=== PATIENT | female | born 2000 | race Two or more races ===

== ENCOUNTER 2024-03-24 20:44 | Emergency (ER) | payer BC, MEDICAID, SELFPAY ==
[2024-03-24 20:44] VITALS: BMI 22.6
[2024-03-24 21:02] VITALS: BP 119/82; PULSE 95; RESP 16; TEMP 36.8; O2SAT 98
--- NOTE | 2024-03-24 21:07 | PD.EDRME ---
Rapid Medical Screening Exam RME Arrival date/time: 03/24/24 20:44 23 year old female present to ED for c/o of vaginal spotting today 8 week I have greeted and performed a focused initial assessment of this patient. A comprehensive ED assessment and evaluation of the patient, analysis of all test results, and completion of the medical decision making process will be conducted by additional ED providers. Chief Complaint: Vaginal Bleeding Time Seen by Provider: 03/24/24 20:56 Vital signs: Vital Signs Temperature 98.2 F 03/24/24 21:02 Pulse Rate 95 03/24/24 21:02 Respiratory Rate 16 03/24/24 21:02 Blood Pressure 119/82 03/24/24 21:02 Pulse Oximetry (%) 98 03/24/24 21:02 Oxygen Delivery Method Room Air 03/24/24 21:02
--- NOTE | 2024-03-24 21:09 | XR_ITS ---
Examination: Complete OB ultrasound, less than 14 weeks, transabdominal Date and time of exam: February 26, 2024 1201 hours Indications: Vaginal bleeding beginning 8:00 PM today Technique: Obstetrical ultrasound images less than 14 weeks performed via transabdominal imaging Findings: Uterus 10.6 x 5.4 x 7.0 standard Gestational sac 2.5 cm corresponds to 7 weeks 4 days gestational age No pole, no cardiac activity Right ovary obscured by bowel gas Left ovary 4.4 x 1.9 x 2.7 cm arterial flow Impression: Empty intrauterine gestational sac corresponding to 7 weeks 4 days gestational age No pole, no cardiac activity Recommend short-term follow-up to exclude embryonic demise
[2024-03-24 21:38] LABS: Basophils % (Auto) 0 % (0-2.5); Eosinophils # (Auto) 0.1 Thou/mm3 (0.0-0.5); Eosinophils % (Auto) 1 % (0-10); Hematocrit 44.2 % (36.0-46.0); Hemoglobin 15.1 g/dL (12.0-16.0); Immature Granulocytes % (Auto) 0 % (0-0); Immature Granulocytes Auto 0.04 Thou/mm3 (0.00-0.00); Lymphocytes # (Auto) 2.3 Thou/mm3 (1.0-4.8); Lymphocytes % (Auto) 24 % (10-50); Mean Corpuscular HGB Conc 34.2 g/dl (31.0-37.0); Mean Corpuscular Hemoglobin 30.1 pg (25.0-35.0); Mean Corpuscular Volume 88 fL (80-100); Monocytes # (Auto) 0.6 Thou/mm3 (0.0-0.8); Monocytes % (Auto) 6 % (0-12); Neutrophils # (Auto) 6.5 Thou/mm3 (1.8-7.7); Neutrophils % (Auto) 68 % (37-80); Nucleated Red Blood Cell % 0 /100 WBC (0); Platelet Count 243 Thou/mm3 (140-440); Red Blood Count 5.01 Miln/mm3 (4.00-5.20); White Blood Count 9.5 Thou/mm3 (3.6-11.0)
[2024-03-24 21:49] LABS: Collection Type, Urine Voided
[2024-03-24 21:54] LABS: Bilirubin,Urine Negative (Negative); Blood,Urine 2+ (Negative); Clarity,Urine Clear (Clear/Hazy); Color,Urine Colorless (Lt Yel-Yel); Glucose, Urine Negative (Negative); Ketones,Urine Negative (Negative); Leukocyte Esterase,Urine Negative (Negative); Nitrite,Urine Negative (Negative); PH,Urine 6.5 (5.0-7.0); Protein,Urine Negative (Neg - Trace); RBC,Urine < 1 /hpf (0-3); Specific Gravity,Urine 1.005 (1.001-1.035); Squamous Epithelial Cell,Urine < 1 /hpf (0-5); Urobilinogen,Urine Negative mg/dL (0.0-1.0); WBC,Urine 1 /hpf (0-5)
[2024-03-24 22:26] LABS: Beta HCG,Quantitative 12253 mIU/mL (<5.0)
--- NOTE | 2024-03-24 23:04 | EDNOTE_ITS ---
<Statement entered by Debbi Mustafa MD - 03/25/24 05:12> As co-signing physician, I was present and available for consult prn. I concur with the plan and care as documented by the midlevel provider. ED OB Contraction Preg RMI/HPI General Chief complaint: Vaginal Bleeding Stated complaint: SPOTTING Time Seen by Provider: 03/24/24 20:56 Arrival date/time: 03/24/24 20:44 23 year old female present to emergency room with c/o of vaginal spotting today. currently 7 weeks . LOCATION: suprapubic SEVERITY: Symptoms are described as being severe with limitations on activities of daily living QUALITY: Symptoms are described as being cramping CONTEXT: The patient is unable to identify any inciting events. DURATION/TIMING: The symptoms started approximately one day ago and have been waxing/waning but always present without ever completely resolving. ASSOCIATED SYMPTOMS: The patient is unable to identify any other associated symptoms. MODIFYING FACTORS: The patient is unable to identify any alleviating or aggravating symptoms. PERTINENT ROS: denies trauma, denies domestic violence, no dysuria or hematuria, no orthostatic symptoms, no nausea or vomiting, no fevers, no anorexia, no diarrhea or constipation REVIEW OF SYSTEMS: See History of Present Illness - with the exception of those mentioned in the history of present illness, all other systems reviewed and reported as negative GENERAL: In general the patient is awake, interactive, in an emergency [facility] gurney. HEAD/EYES/EARS/NOSE/THROAT: normo-cephalic, atraumatic, mucus membranes are moist, anicteric, palpebral conjunctiva is pink, trachea is midline. CARDIOVASCULAR: regular rate and regular rhythm, no murmurs, heart sounds are not distant, strong pulses in all four extremities that are equal and symmetric bilateral upper and lower extremities, normal capillary refill. CHEST/PULMONARY: normal chest rise and fall, good air movement, clear to auscultation bilaterally, normal inspiratory to expiratory ratios without evidence of respiratory distress. NECK: No midline/Paraspinal tenderness, no step off ROM/Strenght intact No Kernig and bruzinski sign. No trauma ABDOMEN: soft, not tender, no masses appreciated BACK: normal range of motion without pain. NEUROLOGICAL: cranio-facial features are symmetric, moves all four extremities equally without obvious limitations or weakness. EXTREMITY: no tenderness to palpation over the long bones or large joints of the bilateral upper and lower extremities, no joint swelling, no joint erythema, no signs of trauma, no unilateral leg swelling and no peripheral edema. SKIN: warm, dry, well-perfused, no jaundice, no rash, no telangiectasias or petechia. PSYCH: calm, cooperative, no evidence of psychosis or agitation RME / HPI RME / HPI Narrative: 03/24/24 20:44 23 year old female present to ED for c/o of vaginal spotting today 8 week I have greeted and performed a focused initial assessment of this patient. A comprehensive ED assessment and evaluation of the patient, analysis of all test results, and completion of the medical decision making process will be conducted by additional ED providers. Related Data Allergies Allergy/AdvReac Type Severity Reaction Status Date / Time No Known Allergies Allergy Verified 03/24/24 20:46 Course Course Course Narrative: plan cbc, hcg, rh, US Quality Measures none Orders Category Date Time Status US OB <= 14 weeks fetus Stat Exams 03/24/24 21:09 Completed ABO/RH Type Stat Lab 03/24/24 21:16 Completed Beta HCG,Quantitative Stat Lab 03/24/24 21:16 Completed CBC Stat Lab 03/24/24 21:16 Completed UA [Urinalysis] Stat Lab 03/24/24 21:30 Completed Urine Culture Stat Lab 03/24/24 21:30 Received Reevaluation(s) Reevaluation #1: discussed with patient about repeat US and HCG in 5-7 days worsen sx return to ED for evaluation Vital Signs Vital signs: Vital Signs Temperature 98.2 F 03/24/24 21:02 Pulse Rate 95 03/24/24 21:02 Respiratory Rate 16 03/24/24 21:02 Blood Pressure 119/82 03/24/24 21:02 Pulse Oximetry (%) 98 03/24/24 21:02 Oxygen Delivery Method Room Air 03/24/24 21:02 Vaginal Bleeding Patient data External records reviewed:: None Clinical information provided by:: patient Social determinants that could affect healthcare access:: none Patient has the following chronic illnesses:: none How is presenting disease/condition affected by chronic disease/condition?: no chronic disease Evaluation data The following diagnostics were reviewed and interpreted by me:: lab results and radiology exam(s) Lab and/or radiology exams considered but not ordered:: none Interpretation Summary: cbc, rh + hc: [id number] us; Findings: Uterus 10.6 x 5.4 x 7.0 standard Gestational sac 2.5 cm corresponds to 7 weeks 4 days gestational age No pole, no cardiac activity Right ovary obscured by bowel gas Left ovary 4.4 x 1.9 x 2.7 cm arterial flow Impression: Empty intrauterine gestational sac corresponding to 7 weeks 4 days gestational age No pole, no cardiac activity Recommend short-term follow-up to exclude embryonic demise urine no infection Medications / Prescriptions Medications or Prescriptions considered but not ordered:: none Medication administrations:: none Consultations Consultation(s) initiated? (list below): No Diagnosis Vaginal Bleeding Differential Diagnosis: threatened , dysfunctional uterine bleeding, menometrorrhagia, ectopic without intrauterine , vaginal bleeding and other ( ) Most likely diagnosis given after review of the tests above:: vaginal bleeding, during Admission Indicated Admission indicated?: not indicated Admission Request Was there a request for admission?: No Disposition Plan Disposition Plan: Discharge Discharge Attestation Discharge Attestation: The patient and all family members were given an opportunity to ask questions and understood the discharge instructions. Discharge instructions specifically effects, indications for sooner follow up or return to the emergency department, and the expected course of current diagnosis. Patient condition: Stable Discharge Plan Plan Patient Disposition: HOME (Self Care) Health Concerns: Follow with PMD as directed Return to ED if sx worsen Prescriptions/Referrals Referrals: No Primary/Family,Physician [Primary Care Provider] - In 1 week Problem List Clinical Impression: Vaginal bleeding during Patient/Caregiver Discharge Instructions Education Materials: Bleeding During Early Print Language: [place] Stand Alone Forms: Adrianne Award Info., Patient Portal Info Letter
== END 2024-03-24 23:29 | disposition home or self-care (01) ==
PROVIDERS: Physician Assistant; Emergency Provider Emergency Medicine
DX: O20.9 Hemorrhage in early pregnancy, unspecified (principal); Z3A.01 Less than 8 weeks gestation of pregnancy
CPT/HCPCS: 36415; 76801; 81001; 84702; 85025; 86900; 86901; 87086; 99284

== ENCOUNTER 2024-03-25 21:40 | Emergency (ER) | payer SELFPAY ==
[2024-03-25 21:41] VITALS: BMI 22.6
[2024-03-25 21:46] VITALS: BP 112/71; PULSE 95; RESP 18; TEMP 37.1; O2SAT 100
--- NOTE | 2024-03-25 21:57 | XR_ITS ---
Examination: Complete OB ultrasound, less than 14 weeks, transabdominal Date and time of exam: March 25, 2024 1031 hrs. Indications: Vaginal bleeding and pelvic pain beginning 9:00 PM today Technique: Obstetrical ultrasound images less than 14 weeks performed via transabdominal imaging Findings: Uterus 9.0 x 4.9 x 5.9 cm anteverted No uterine mass or intrauterine gestation Endometrial stripe 0.7 cm Right ovary 3.3 x 1.4 x 2.7 cm arterial flow Left ovary 2.8 x 1.5 x 2.5 cm arterial flow Mild fluid in the cul-de-sac Impression: No uterine mass or intrauterine gestation
--- NOTE | 2024-03-25 21:57 | EDNOTE_ITS ---
<Statement entered by Debbi Mustafa MD - 03/26/24 22:06> As co-signing physician, I was present and available for consult prn. I concur with the plan and care as documented by the midlevel provider. ED OB Contraction Preg RMI/HPI General Chief complaint: Vaginal Bleeding Stated complaint: VAGINAL BLEEDING Time Seen by Provider: 03/25/24 21:48 Source: patient Arrival date/time: 03/25/24 21:40 23-year-old female 1 approximately 8 weeks presents emergency department complaining of vaginal bleeding and abdominal cramping that started yesterday. Patient denies any fever, chills, nausea vomiting, diarrhea, or any other associated symptom. Mode of arrival: ambulatory Limitations: no limitations Related Data Previous Rx's ?Medication ?Instructions ?Recorded cephalexin 500 mg capsule 500 mg PO TID 7 days #21 caps 03/25/24 Allergies Allergy/AdvReac Type Severity Reaction Status Date / Time No Known Allergies Allergy Verified 03/24/24 20:46 Review of Systems Review of Systems Systems Reviewed: All systems reviewed, normal except as documented Constitutional Constitutional: Reports system reviewed and no additional complaints, except as documented, Denies body ache(s), Denies chills and Denies fever(s) Eyes Eyes: Reports system reviewed and no additional complaints, except as documented and Denies change in vision ENT Ears, Nose, Mouth, and Throat: Reports system reviewed and no additional complaints, except as documented, Denies disequilibrium, Denies dizziness, Denies sore throat and Denies vertigo Cardiovascular Cardiovascular: Reports system reviewed and no additional complaints, except as documented, Denies chest pain and Denies dyspnea Respiratory Respiratory: Reports system reviewed and no additional complaints, except as documented, Denies chest congestion, Denies cough and Denies dyspnea Gastrointestinal Gastrointestinal: Reports system reviewed and no additional complaints, except as documented, Reports abdominal pain, Denies nausea and Denies vomiting Genitourinary Genitourinary: Reports abnormal vaginal bleeding Musculoskeletal Musculoskeletal: Reports system reviewed and no additional complaints, except as documented, Denies abnormal gait and Denies arthralgias Integumentary/Breasts Skin/Breast: Reports system reviewed and no additional complaints, except as documented, Denies erythema, Denies rash and Denies wounds Neurologic Neurologic: Reports system reviewed and no additional complaints, except as documented, Denies abnormal gait, Denies disequilibrium, Denies dizziness and Denies vertigo Past Medical History Past Medical History NEUROLOGIC: Positive Seizures (AT 4 YEARS X2) CARDIAC: Negative Cardiac Disorders or Congestive Heart Failure RESPIRATORY: Negative Chronic Obstructive Pulmonary Disease (COPD) or Asthma GENITOURINARY: Negative Renal Disease ENDOCRINE: Negative Diabetes Mellitus Type 1 or Diabetes Mellitus Type 2 HEMATOLOGIC: Negative Sickle Cell Disease Social History SMOKING STATUS: Never smoker ED Exam General Limitations: Present no limitations General appearance: Present alert and in no apparent distress Head Head exam: Present atraumatic Eye Eye exam: Present normal appearance, PERRL and EOMI ENT ENT exam: Present normal exam, normal oropharynx and mucous membranes moist Neck Neck exam: Present normal inspection, full ROM and trachea midline Chest Chest inspection: Present normal inspection and symmetric chest wall rise Respiratory Respiratory exam: Present normal lung sounds bilaterally Cardiovascular Cardiovascular exam: Present regular rate, normal rhythm and normal heart sounds Abdominal Exam Abdominal exam: Present soft and normal bowel sounds Extremities Exam Extremities exam: Present normal inspection and full ROM Back Exam Back exam: Present normal inspection and full ROM Neurological Exam Neurological exam: Present alert, oriented X3 and CN II-XII intact Psychiatric Psychiatric exam: Present normal affect and normal mood Skin Skin exam: Present warm, dry, intact and normal color Course Quality Measures none Orders Category Date Time Status US OB <= 14 weeks fetus Stat Exams 03/25/24 21:57 Completed ABO/RH Type Stat Lab 03/25/24 22:21 Completed Beta HCG,Quantitative Stat Lab 03/25/24 22:21 Completed CBC Stat Lab 03/25/24 22:21 Completed CMP [Comprehensive Metabolic Panel] Stat Lab 03/25/24 22:21 Completed Urinalysis, C/S if Indicated Stat Lab 03/25/24 22:11 Completed Urine Culture Stat Lab 03/25/24 22:11 Received [id number] [Rocephin] 1,000 mg Med 03/25/24 23:30 Discontinued Lidocaine 1% 20 ml [Xylocaine 1% 20 ML] 2.1 ml IM X1 Vital Signs Vital signs: Vital Signs Temperature 98.7 F 03/25/24 21:46 Pulse Rate 95 03/25/24 21:46 Respiratory Rate 18 03/25/24 21:46 Blood Pressure 112/71 03/25/24 21:46 Pulse Oximetry (%) 100 03/25/24 21:46 Oxygen Delivery Method Room Air 03/25/24 21:46 100% room air within normal limits Vaginal Bleeding MDM Narrative MDM Narrative: 23-year-old female 1 approximately 8 weeks presents emergency department complaining of vaginal bleeding and abdominal cramping that started yesterday. Patient denies any fever, chills, nausea vomiting, diarrhea, or any other associated symptom. Patient appears nontoxic and is hemodynamically stable. CBC leukocytosis 14.5 and hemoglobin 14.4. CMP was unremarkable. Urinalysis positive for leukocytes, WBCs, and nitrates consistent with urinary tract infection. Patient given IM Rocephin and discharged on oral antibiotic. Ultrasound negative for any intrauterine gestation or uterine mass. Beta-hCG 9000 trending down from previous 12,000. Patient discharged instructed to follow-up with [facility] in 24 to 48 hours and return to emergency department for any worsening symptoms or as needed. Patient data External records reviewed:: [facility] previous records Clinical information provided by:: patient Social determinants that could affect healthcare access:: none Patient has the following chronic illnesses:: N/A How is presenting disease/condition affected by chronic disease/condition?: no chronic disease Evaluation data The following diagnostics were reviewed and interpreted by me:: lab results and radiology exam(s) Lab and/or radiology exams considered but not ordered:: Ordered Interpretation Summary: Interpreted by me Medications / Prescriptions Medications or Prescriptions considered but not ordered:: Ordered Medication administrations:: Medication Administration History Discontinued Medications Ceftriaxone Sodium 1,000 mg/ (Lidocaine HCl 2.1 ml) 0 mg IM X1 ONE Stop: 03/25/24 23:31 Last Admin: 03/25/24 23:50 Dose: 1,000 mg Documented By: Given Consultations Consultation(s) initiated? (list below): No Diagnosis Vaginal Bleeding Differential Diagnosis: missed , threatened , dysfunctional uterine bleeding, incomplete and vaginal bleeding Most likely diagnosis given after review of the tests above:: Threatened UTI Admission Indicated Admission indicated?: not indicated Admission Request Was there a request for admission?: No Disposition Plan Disposition Plan: Discharge Discharge Attestation Discharge Attestation: The patient and all family members were given an opportunity to ask questions and understood the discharge instructions. Discharge instructions specifically effects, indications for sooner follow up or return to the emergency department, and the expected course of current diagnosis. Patient condition: Stable Discharge Plan Plan Patient Disposition: HOME (Self Care) Disposition Comment: Stable Prescriptions/Referrals Prescriptions/Med Rec: New cephalexin 500 mg capsule 500 mg PO TID 7 Days Qty: 21 0RF Referrals: Jaun Estrada MD [Primary Care Provider] - In 1 week Problem List Clinical Impression: UTI (urinary tract infection), Threatened miscarriage Patient/Caregiver Discharge Instructions Discharge Activity: activity as tolerated Education Materials: ED Possible Miscarriage ..., ED CYSTITIS Female Adult Additional Instructions: Take medication as prescribed. Follow-up with [facility] in 24 to 48 hours to have repeat ultrasound and beta hCG trend. Return to emergency department for any worsening symptoms or as needed. Print Language: Citizen Of [place] Stand Alone Forms: Adrianne Award Info., Patient Portal Info Letter PA/REGULATOR MECHANIC Supervising Physician PA/REGULATOR MECHANIC Supervising Physician: Dr. Mustafa
[2024-03-25 22:19] LABS: Collection Type, Urine Clean Catch; Squamous Epithelial Cell,Urine 0 /hpf (0-5)
[2024-03-25 22:33] LABS: Bilirubin,Urine Negative (Negative); Blood,Urine 3+ (Negative); Clarity,Urine Clear (Clear/Hazy); Color,Urine Drk Red (Lt Yel-Yel); Glucose, Urine Negative (Negative); Ketones,Urine Trace (Negative); Leukocyte Esterase,Urine Trace (Negative); Nitrite,Urine Positive (Negative); PH,Urine 5.5 (5.0-7.0); Protein,Urine 2+ (Neg - Trace); Specific Gravity,Urine 1.025 (1.001-1.035)
[2024-03-25 22:36] LABS: RBC,Urine 6773 /hpf (0-3); WBC,Urine 562 /hpf (0-5)
[2024-03-25 22:38] LABS: Culture Indicated,Urine Yes
[2024-03-25 22:38] LABS: Basophils % (Auto) 0 % (0-2.5); Eosinophils # (Auto) 0.2 Thou/mm3 (0.0-0.5); Eosinophils % (Auto) 1 % (0-10); Hematocrit 42.6 % (36.0-46.0); Hemoglobin 14.4 g/dL (12.0-16.0); Immature Granulocytes % (Auto) 0 % (0-0); Immature Granulocytes Auto 0.05 Thou/mm3 (0.00-0.00); Lymphocytes # (Auto) 2.4 Thou/mm3 (1.0-4.8); Lymphocytes % (Auto) 16 % (10-50); Mean Corpuscular HGB Conc 33.8 g/dl (31.0-37.0); Mean Corpuscular Hemoglobin 30.1 pg (25.0-35.0); Mean Corpuscular Volume 89 fL (80-100); Monocytes % (Auto) 7 % (0-12); Neutrophils % (Auto) 76 % (37-80); Nucleated Red Blood Cell % 0 /100 WBC (0); Platelet Count 213 Thou/mm3 (140-440); RDW Standard Deviation 39.8 fL (36.4-46.3); Red Blood Count 4.79 Miln/mm3 (4.00-5.20); White Blood Count 14.5 Thou/mm3 (3.6-11.0)
[2024-03-25 22:58] LABS: Alanine Aminotransferase 25 U/L (10-49); Albumin, Serum 4.5 gm/dL (3.5-5.0); Albumin/Globulin Ratio 1.7 (1.2-2.2); Alkaline Phosphatase 46 U/L (46-116); Anion Gap 8 (7-16); Aspartate Amino Transferase 19 U/L (0-34); BUN/Creatinine Ratio 10 Ratio (12-20); Bilirubin,Total 0.5 mg/dL (0.3-1.2); Blood Urea Nitrogen 8 mg/dL (9-23); Calcium 9.6 mg/dL (8.3-10.6); Calcium (Corrected) 9.6 mg/dL (8.5-10.1); Carbon Dioxide 26.3 mMol/L (20.0-31.0); Chloride 105 mMol/L (98-107); Creatinine (Component) 0.8 mg/dL (0.6-1.3); Estimated Creatinine Clearance 104.1 mL/min (>60); Globulin 2.7 gm/dL (2.3-3.5); Glucose 115 mg/dL (74-106); Osmolality,Calculated 276 (275-295); Potassium 3.7 mMol/L (3.4-5.1); Sodium 139 mMol/L (136-145); Total Protein 7.2 gm/dL (5.7-8.2); eGFR > 60 See Note
[2024-03-25 23:26] LABS: Beta HCG,Quantitative 9127 mIU/mL (<5.0)
[2024-03-25] MEDS: cefTRIAXone 1,000 MG, LIDOCAINE 1% 20 ML 2.1 ML IM (23:50)
== END 2024-03-26 00:14 | disposition home or self-care (01) ==
PROVIDERS: Emergency Provider Emergency Medicine; PCP Family Medicine
DX: O20.0 Threatened abortion (principal); O23.40 Unspecified infection of urinary tract in pregnancy, unspecified trimester; N39.0 Urinary tract infection, site not specified; Z3A.08 8 weeks gestation of pregnancy
CPT/HCPCS: 36415; 76801; 80053; 81001; 84702; 85025; 86900; 86901; 87077; 87086; 87186; 96372; 99284; J0696; J3490